=== PATIENT | female | born 1985 | race Caucasian/White ===

== ENCOUNTER 2019-02-28 06:08 | Inpatient (IN) ==
[~2019-02-28 06:08] MED LIST: CEFAZOLIN 2000MG 2,000 MG/15 ML SYR IV SCH
[2019-02-28] MEDS ORDERED: LACTATED RINGER'S 1,000 ML IV PRN (06:20)
[2019-02-28] MEDS ORDERED: miSOPROStoL 200 MCG TAB PR ONE ×2 (06:24→08:31)
[2019-02-28] MEDS ORDERED: TRANEXAMIC ACID / 0.7% NACL 1,000 MG/100 ML BAG IV STA (06:24)
[2019-02-28] MEDS ORDERED: SODIUM CHLORIDE 0.9% 250 ML IV PRN ×3 (06:24→19:27)
[2019-02-28] MEDS ORDERED: TRANEXAMIC ACID / 0.7% NACL 1000MG/100ML BAG IV ONE (06:27)
[2019-02-28] MEDS: OXYTOCIN 30 UNITS/500 ML BAG IV PRN ×3 (06:32→08:54)
[2019-02-28 06:41] LABS: Hematocrit (blood only) 28.5 % (37-47); Hemoglobin 9.8 g/dL (12.0-16.0); Mean Corpuscular Hemoglobin 31.9 pg (25-34); Mean Corpuscular Volume 92.8 fL (80-100); Mean Platelet Volume 9.5 fL (7.4-10.4); Platelet Count 211 K/uL (130-400); RDW Coefficient of Variation 13.9 % (11.5-14.5); RDW Standard Deviation 47.5 fL (36.4-46.3); Red Blood Count 3.07 M/uL (4.2-5.4); White Blood Count 13.15 K/uL (4.8-10.8)
[2019-02-28] MEDS ORDERED: SUCCINYLCHOLINE CHLORIDE 20 MG/ML 10 ML VIAL ONE (06:41)
[2019-02-28] MEDS ORDERED: fentaNYL citrate 100 MCG/2 ML VIAL ONE (06:41)
[2019-02-28] MEDS ORDERED: PROPOFOL IV EMULSION 10 MG/ML 20 ML VIAL IV ONE (06:41)
[2019-02-28 06:44] LABS: Mean Corpuscular Hgb Conc 34.4 g/dL (32-36)
[2019-02-28] MEDS ORDERED: SODIUM CHLORIDE 0.9% IV ONE (06:45)
[2019-02-28] MEDS ORDERED: CALCIUM GLUCONATE IV ONE (06:45)
[2019-02-28 06:51] LABS: Partial Thromboplastin Ratio 0.9; Partial Thromboplastin Time 25.6 Seconds (21.0-31.0)
[2019-02-28] MEDS ORDERED: IBUPROFEN 600 MG TAB PO PRN (07:44)
[2019-02-28] MEDS ORDERED: ACETAMINOPHEN 325 MG TAB PO PRN (07:44)
[2019-02-28] MEDS ORDERED: HYDROCORTISONE ACETATE 25 MG SUPP PR PRN (07:44)
[2019-02-28] MEDS ORDERED: SUPERCREAM 0.870% 15 GM JAR EXT PRN (07:44)
[2019-02-28] MEDS ORDERED: OXYTOCIN 30 UNITS/500 ML BAG IV PRN (07:44)
[2019-02-28] MEDS ORDERED: BENZOCAINE 20% AER SPR 82.5 GM CAN EXT PRN (07:44)
[2019-02-28] MEDS ORDERED: OXYTOCIN 10 UNITS/ML VIAL ONE (08:04)
--- NOTE | 2019-02-28 08:12 | Post Operative Brief Note ---
PG Immediate Post Op with CF Date of Surgery February 28, 2019 Pre & Post Diagnosis Operation Date: 02/28/19 06:00 Pre-Op Diagnosis: 1. Post Hemorrhage 2. Retained placenta Post-Op Diagnosis: Same as preop I identified the patient and participated in the time-out.: Yes Procedure Operation Date: 02/28/19 06:00 1) Manual removal of placenta 2) Curettage of the uterus 3) Bakri balloon placement Surgeon Charles Boyle Jr, MD, FACOG Roller Man Breanna Gotti Estimated Blood Loss 750 Findings See Below (Manual removal of placenta, curretage of endometrium with placement of Bakri balloon) Specimens Specimen Description: 1. Placenta - Exam Drains Leroy Catheter (Inserted in OR by Angela Mathews RN)
--- NOTE | 2019-02-28 08:14 | History and Physical Report ---
DATE OF ADMISSION: 02/28/2019 HISTORY: The patient is a 33-year-old 5, para 4 status post precipitous delivery at home who was brought by ambulance to labor and delivery for hemorrhage and retained placenta. The patient had a precipitous delivery at home. She was attended at some point by a tile layer supervisor who could not deliver the placenta and the patient started to hemorrhage. Ambulance was notified and the patient was brought to the hospital for evaluation. The patient's states that the patient had 2 previous bleeds with retained products of conception. With one of these, she was admitted to [facility] and had a Bakri balloon placed. The patient's states that she has no other significant past medical history. PHYSICAL EXAMINATION: GENERAL: Shows a pale Ezio woman, conversing, in no acute distress. ABDOMEN: Shows a fundus firm at umbilicus. PELVIC: Shows umbilical cord prolapsing through vagina. Attempted delivery of the placenta unsuccessful. Bimanual examination shows the placenta adhered to the uterine wall and will not release. EXTREMITIES: Shows bilateral varicosities with no deep calf tenderness. IMPRESSION: A 33-year-old 5, para 4 status post acute delivery with hemorrhage and retained placenta. PLAN: Verbal consent is obtained from the patient for Emergency manual extraction under general anesthesia. Anesthesia and the massive transfusion protocol have been activated. Discussing with anesthesia, it is not felt prudent to take the patient back to the operating room until blood products are available. Because of the estimated blood loss of at least 3000 mL at this point, O negative uncrossed matched blood will be transfused. Once the blood arrives, the patient will be taken to the operating room for removal of the placenta manually and further manipulation as needed. Verbal consent for this procedure was obtained from the patient. The patient was unable to sign because of the urgent status and multiple personnel attending to the patient.
--- NOTE | 2019-02-28 08:22 | Operative Report ---
DATE OF OPERATION: 02/28/2019 PREOPERATIVE DIAGNOSES: 1. hemorrhage. 2. Retained placenta. POSTOPERATIVE DIAGNOSES: 1. hemorrhage. 2. Retained placenta. PROCEDURE PERFORMED: 1. Manual removal of the placenta. 2. Curettage of endometrial lining. 3. Placement of Bakri balloon. SURGEON: Charles Boyle MD SPINNER OPERATOR: Breanna Gotti MD ANESTHESIA: General. FINDINGS: Exam under anesthesia revealed a placenta adhered to the uterine wall with the cervix grossly dilated, manual removal with most of the placenta removed. Curettage then performed of the endometrial lining with placement of the Bakri balloon with 180 mL of saline. PROCEDURE IN DETAIL: The patient was taken to the operating room in a stat fashion for a hemorrhage with estimated blood loss 5000 mL. After general anesthesia, the patient was placed in a dorsal lithotomy position. Leroy catheter was inserted into the bladder. Surgical stockings were placed on her legs. Weighted speculum was placed in the vagina. Ring forceps was used to grasp the anterior lip of the cervix. Inserting the surgeon's hand into the uterus, a plane was developed between the placenta and the uterine wall, removing 95% of the placenta. A large banjo curette was then used to curettage all 4 quadrants of the uterus and with vigorous massage, the uterus began to contract. A Bakri balloon was then inserted into the uterine cavity and insufflated with 180 mL of normal saline. The Bakri balloon was then attached to a Leroy catheter. Hemostasis was achieved with the Bakri balloon. The patient then received Cytotec 800 mcg rectally. The patient was taken out of dorsal lithotomy position and stabilized by anesthesia. Following stabilization of anesthesia, she was taken out of the operating room and to the intensive care unit in stable condition. I attest to the content of the Intraoperative Record and any orders documented therein. Any exception s are noted below.
--- NOTE | 2019-02-28 08:48 | Critical Care Consultation ---
Date of Consultation February 28, 2019 Assessment & Plan (1) Admitted to intensive care unit: Reason Critically Ill: 33-year-old female here for hemorrhage. Past medical history significant for no significant medical history Neuro: -CAM ICU: NEGATIVE -No acute concerns at present Cardiac: Hypovolemia secondary to hemorrhage -See hemorrhage Respiratory: -No concerns at present GI: -Regular OB diet diet RENAL/LYTES: -No significant electrolyte derangement. -Replace lytes as needed. : hemorrhage -Barry balloon in place ENDO: -No history of diabetes or thyroid disorder HEME: hemorrhage Patient presented to the ICU after sustaining a hemorrhage in the field and status post manual evacuation of the placenta with placement of a Barry balloon. Prior to presentation in the ICU the patient received 2 units packed red blood cells, 800 mg WI Cytotec 1 unit of cryo 1 unit of FFP 1 g of TXA and Pitocin was running. Patient does have a history of prior bleeds x2 one required admission to the hospital with placement of a Barry balloon. -Transfuse 1 additional unit of blood -Pitocin 20 units in LR running 125 mL/h -Trend H&H, ionized calcium, LDH, PTT, PT, every 6 hours -Monitor for signs and symptoms of anemia -LR at 125 mL an hour ID: - No concerns for infection at this point. -Monitor fever curve. INTEGUMENTARY: -No concerns at present LINES/IV ACCESS: -PIVs intact. DVT PROPHYLAXIS: -Contraindicated in the setting of hemorrhage Dispo: ICU Thank you for allowing us to be part of this patient's care. Please refer to Dr. Crews's documentation for any further recommendations. (2) hemorrhage: Supervising Physician Co-Signing Physician Notes Dr. Meredith was resident physician during care of patient. I separately evaluated patient for werner portions of the history and the exam. I was present during the critical portion of medical decision making, and I discussed the case with the resident. I generally agree with the findings and plan. Patient was given 1 unit of packed red blood cells for hemoglobin of 6, she has not had a large amount of output from the back re-balloon. I believe we can continue conservative management at this time. Her fundus does feel firm. She is tolerating taking food, I have added a multivitamin, twice daily iron, twice daily vitamin C to increase absorption as well as 1 mg folic acid. Patient critically ill due to hemorrhage. I have personally spent 35 minutes of critical care time in the direct management of this patient. This is a life/limb threatening event. This includes time spent evaluating patient, direct bedside care, chart review, placing orders, interpretation of diagnostic studies, discussion with consultants, patient, and/or family members regarding treatment decisions, as well as other required patient management activities. This time is exclusive of all separately billable procedures, and teaching time and separate from and in addition to any other critical care service time. History of Present Illness Attending Physician: Charles Boyle Jr, MD, FACOG History of Present Illness 33-year-old G5, P4 with no significant past medical history [facility] post home delivery for hemorrhage and retained placenta. Per report EMS was initially called out of concerns at the patient's was unresponsive. However in the interim the infant became responsive and the patient was hemorrhaging and her placenta was not delivered. There was a aluminum siding mechanic present who is familiar with necessary procedures and sent the patient to the hospital with the blood drenched clothing. This was weighed upon arrival and it was estimated that she lost approximately 5 L of blood. Per conversation with the patient's he stated the patient had 2 previous bleeds with retained products of conception. 1 of these required admission to [facility] in [place] balloon was placed. Upon arrival the patient received 2 units packed red blood cells, 1 unit FFP, 1 unit cryo and the patient was consented for emergency manual extraction under general anesthesia. Anesthesia massive transfusion protocol were activated. The patient was subsequently anesthetized, manual removal of the placenta was performed, curettage of the endometrial lining was performed, and then back re-balloon was placed with 100 mL of saline. Patient tolerated the procedure well and was subsequently transferred to the ICU for further evaluation and management. Upon arrival to the ICU the patient was responsive, mentating well, able to engage in conversation, reporting that she was very cold. Acute concerns at present related to blood loss, all questions answered. Patient History Medical History No significant past medical history Social History Communication Ability: Effective Beliefs That Will Affect Care: Cultural Current Living Situation: Spouse Feels Safe at Home: Yes Safety Concerns: Feels Safe At This Time Smoking Status: Never smoker Do You Dip or Chew Tobacco: No ; Hx Alcohol Use: No Hx Substance Use: No Physical Exam Physical Exam: General: Pale appearing female draped in blankets in no acute distress HEENT: Normocephalic atraumatic Neck: Normal to visual inspection, trachea midline, did not appreciate JVD Cardiac: Regular rate and rhythm, I did not appreciate significant murmurs rubs or gallops, normal S1, normal S2. Respiratory: Clear to auscultation bilaterally without significant wheezes, rales, rhonchi GI: Recently gravid belly, uterus firm and palpable 2 fingers below the umbilicus MSK: Moves all extremities Skin: No acute concerns Neuro: Alert oriented x4 Psych: Calm, cooperative Results & Data Laboratory Results 02/28/19 02/28/19 02/28/19 Range/Units 07:25 06:32 06:32 WBC (4.8-10.8) K/uL RBC (4.2-5.4) M/uL Hgb (12.0-16.0) g/dL Hct (37-47) % MCV (80-100) fL MCH (25-34) pg MCHC (32-36) g/dL RDW Std Deviation (36.4-46.3) fL RDW Coeff of [place] (11.5-14.5) % Plt Count (130-400) K/uL MPV (7.4-10.4) fL PT (9.0-12.0) Seconds INR (0.9-1.1) APTT (21.0-31.0) Seconds PTT Ratio RPR Pending Hep Bs Antigen Hepatitis C Antibody HIV 1&2 Ab/P24 Ag 4thGn Pending Rubella IgG Antibody Blood Type Blood Type Recheck A Positive Antibody Screen Crossmatch 02/28/19 02/28/19 02/28/19 Range/Units 06:32 06:30 06:30 WBC (4.8-10.8) K/uL RBC (4.2-5.4) M/uL Hgb (12.0-16.0) g/dL Hct (37-47) % MCV (80-100) fL MCH (25-34) pg MCHC (32-36) g/dL RDW Std Deviation (36.4-46.3) fL RDW Coeff of [place] (11.5-14.5) % Plt Count (130-400) K/uL MPV (7.4-10.4) fL PT 10.0 (9.0-12.0) Seconds INR 1.0 (0.9-1.1) APTT 25.6 (21.0-31.0) Seconds PTT Ratio 0.9 RPR Hep Bs Antigen Pending Hepatitis C Antibody Pending HIV 1&2 Ab/P24 Ag 4thGn Rubella IgG Antibody Pending Blood Type A Positive Blood Type Recheck Antibody Screen NEGATIVE Crossmatch See Detail 02/28/19 Range/Units 06:30 WBC 13.15 H (4.8-10.8) K/uL RBC 3.07 L (4.2-5.4) M/uL Hgb 9.8 L (12.0-16.0) g/dL Hct 28.5 L (37-47) % MCV 92.8 (80-100) fL MCH 31.9 (25-34) pg MCHC 34.4 (32-36) g/dL RDW Std Deviation 47.5 H (36.4-46.3) fL RDW Coeff of [place] 13.9 (11.5-14.5) % Plt Count 211 (130-400) K/uL MPV 9.5 (7.4-10.4) fL PT (9.0-12.0) Seconds INR (0.9-1.1) APTT (21.0-31.0) Seconds PTT Ratio RPR Hep Bs Antigen Hepatitis C Antibody HIV 1&2 Ab/P24 Ag 4thGn Rubella IgG Antibody Blood Type Blood Type Recheck Antibody Screen Crossmatch Medications Administered Current Inpatient Medications Acetaminophen (Tylenol) 650 mg PO Q6H PRN PRN Reason: Pain/SKINNER/Fever Stop: 03/30/19 07:43 Benzocaine (Dermoplast Pain Relieving Sand Pillow) 1 appln EXT PRN PRN PRN Reason: Perineal Discomfort Stop: 03/30/19 07:43 Bisacodyl (Dulcolax) 5 mg PO 2000 ADEN Stop: 03/01/19 20:01 Cocaine HCl (Supercream 0.870%) 1 gm EXT BID PRN PRN Reason: Hemorrhoidal Inflammation Stop: 03/14/19 07:43 Docusate Sodium (Colace) 100 mg PO DAILY@08,21 ADEN Stop: 03/30/19 07:59 Hydrocortisone (Anusol Hc) 25 mg WI BID PRN PRN Reason: Hemorrhoidal Inflammation Stop: 03/30/19 07:43 Lactated Ringer's (Lr) 1,000 mls @ 125 mls/hr IV .Q8H PRN; Protocol PRN Reason: L&D Protocol Stop: 03/02/19 06:19 Oxytocin (Pitocin) 30 units in 500 mls @ 333.333 mls/hr IV .Q1H30M PRN; Protocol PRN Reason: Bleeding Control Stop: 03/30/19 06:19 Last Admin: 02/28/19 06:33 Dose: 59.94 units/hr, 999 mls/hr Documented by: Sodium Chloride (Nss) 250 mls @ 15 mls/hr IV .[id number] PRN PRN Reason: For Transfusion Stop: 02/28/19 16:25 Albumin Human (Albumin 5%) 250 mls @ 250 mls/hr IV 0700,0800 ADEN Stop: 02/28/19 08:59 Cefazolin Sodium (Ancef 2000mg) 2,000 mg in 15 mls @ 3.75 mls/min IV PREOP ADEN Stop: 03/01/19 05:59 Oxytocin (Pitocin) 30 units in 500 mls @ 333.333 mls/hr IV .Q1H30M PRN; Protocol PRN Reason: Bleeding Control Stop: 03/30/19 07:43 Ibuprofen (Motrin) 600 mg PO Q4H PRN PRN Reason: Pain/SKINNER/Cramping/Fever Stop: 03/30/19 07:43 Prenat Multivit/Artillery Or [employer] Gunfire Observer/Iron/Folic Ac ( Vitamin) 1 tab PO DAILY@08 ADEN Stop: 03/30/19 07:59 Resident Activity Tracking Resident Involvement: Resident Care Provided Care Provided: Adult Hospital Medicine (ICU)
[2019-02-28 09:12] LABS: Rubella IgG Antibody Non Immune (Immune)
[2019-02-28] MEDS: ALBUMIN 5% 250 ML IV SCH ×2 (09:12→09:13)
--- NOTE | 2019-02-28 09:12 | Anesthesiology Consultation ---
Date of Service February 28, 2019 Assessment & Plan (1) No significant past medical history: (2) Encounter for pre-operative examination: Chart Review Chart Review: Acceptable Risk for Surgery and Patient NOT seen in Pre Admission Testing Consults Requested none ASA [id number] Proposed Anesthesia Anesthesia Type: General Risk / Benefits Reviewed With: PT / POA / Parent / Guardian, Accepts Plan and Informed Consent Obtained Additional Notes Preoperative evaluation performed prior to going to OR - documentation completed after the case done due to the case being emergent and the patient at risk of hemodynamic collapse if we did not proceed immediately. History Surgery Operation Date: 02/28/19 06:00 Proposed Procedures p Labor Delivery Dilation and Curettage - Charles Boyle Jr, MD, FACOG Medications Active Medications Generic Name Dose Route Start Last Admin Trade Name Freq PRN Reason Stop Dose Admin Oxytocin 30 units in 500 mls @ 333.333 mls/hr 02/28/19 06:20 02/28/19 08:54 Pitocin IV 03/30/19 06:19 125 units/hr .Q1H30M PRN 2,083.3 mls/hr Bleeding Control Administration Protocol 20 UNITS/HR Cefazolin Sodium 2,000 mg in 15 mls @ 3.75 mls/min 02/28/19 06:00 02/28/19 08:53 Ancef 2000mg IV 03/01/19 05:59 Not Given PREOP ADEN Oxytocin 30 units in 500 mls @ 333.333 mls/hr 02/28/19 07:44 02/28/19 06:33 Pitocin IV 03/30/19 07:43 Infused .Q1H30M PRN Titration Bleeding Control Protocol 20 UNITS/HR NPO Date Last Intake of Fluids: 02/28/19 Time Last Intake of Fluids: 06:30 Date Last Intake of Solids: 02/27/19 Time Last Intake of Solids: 11:59 Past Medical History Medical History (Updated 02/28/19 @ 09:10 by Richa Kan MD) No significant past medical history Exercise / Class Metabolic Activity II 4-5 Yardwork/Stairs/Walk up hill Past Family History Family history not collected - medical emergency Past Surgical History Hx of prior surgery - type of surgery not collected due to emergency Past Anesthesia History No Hx of Anesthesia Complications History of PONV No Hx of PONV Social History Smoking Status: Never smoker Do You Dip or Chew Tobacco: No Hx Alcohol Use: No Review of Systems Post hemorrhage after home Physical Exam Vital Signs Last Vital Signs Temp 37.5 C 02/28/19 08:59 Pulse 102 H 02/28/19 08:59 Resp 30 H 02/28/19 08:59 BP 101/64 02/28/19 08:59 Pulse Ox 100 02/28/19 08:59 Constitutional not obese ENMT Mouth: no TMJ abnormality and oral opening not small Thyromental Distance: > or= 3.5 Finger Breadths Mallampati Class: III Neck normal visual inspection; neck extension not limited Respiratory normal respiratory effort Auscultation: lungs clear to auscultation bilaterally Cardiovascular Rate/Rhythm: regular rate and regular rhythm Heart Sounds: no murmur Neurologic moves all extremities Psychiatric Orientation: alert and oriented x 3 Testing Laboratory Results 02/28/19 06:30 PT 10.0 Seconds (9.0-12.0) 02/28/19 06:30 INR 1.0 (0.9-1.1) 02/28/19 06:30 APTT 25.6 Seconds (21.0-31.0) 02/28/19 06:30 Blood Type A Positive 02/28/19 06:30 Antibody Screen NEGATIVE 02/28/19 06:30
[2019-02-28 09:13] LABS: Hepatitis B Surface Antigen Neg (Neg)
--- NOTE | 2019-02-28 09:17 | Anesthesiology Progress Note ---
Date of Service February 28, 2019 Anesthesia Post Procedure Vital Signs Vital Signs: Temp Pulse Pulse Resp BP BP Pulse Ox 02/28/19 09:00 37.5 C 108 H 20 100 02/28/19 08:59 37.5 C 102 H 30 H 101/64 100 02/28/19 08:55 37.5 C 103 H 20 112 H 02/28/19 08:50 37.5 C 110 H 18 125/58 L 100 02/28/19 08:45 37.5 C 100 H 20 127/62 100 02/28/19 08:40 37.5 C 112 H 19 128/58 L 100 02/28/19 08:35 37.5 C 105 H 18 132/59 L 100 02/28/19 08:30 115 H 20 100 02/28/19 06:05 116 H 22 125/69 Pain Intensity Pelvic: Pain Intensity: 3 Transfer of Care Handoff Completed per policy Notes Mental Status: alert / awake / arousable and participated in evaluation Patient Amnestic to Procedure: Yes Nausea / Vomiting: adequately controlled Pain: adequately controlled Airway Patency, RR, SpO2: stable & adequate BP & HR: stable & adequate Hydration State: stable & adequate Anesthetic Complications: no major complications apparent and see Notes below Notes: Patient direct to the ICU at the end of the case. Awake, alert, responding appropriately and moving all extremities. Hemodynamically stable. Report given.
[2019-02-28] MEDS: DOCUSATE SODIUM 100 MG CAP PO SCH ×2 (09:32→19:55)
[2019-02-28] MEDS: PRENATAL VITAMIN 1 TAB PO SCH (09:32)
[2019-02-28] MEDS: OXYTOCIN 20 UNITS in LACTATED RINGER'S 1,000 ML IV SCH ×2 (09:35→17:03)
[2019-02-28 09:41] LABS: Hematocrit (blood only) 17.2 % (37-47)
[2019-02-28 09:41] LABS: Hepatitis C IgG 13Yrs+Old_Rflx Neg (Neg)
[2019-02-28 09:45] LABS: INR 1.2 (0.9-1.1); Partial Thromboplastin Ratio 1.1; Partial Thromboplastin Time 29.1 Seconds (21.0-31.0); Prothrombin Time 11.7 Seconds (9.0-12.0)
[2019-02-28 09:50] LABS: Albumin Level 2.2 gm/dl (3.4-5.0); Calcium 7.3 mg/dl (8.5-10.1); Creatinine Clr Calc Pharmacy 158.8 ml/min; Est GFR (Non-African American) 124.2; Potassium 3.5 mmol/L (3.5-5.1)
[2019-02-28 09:53] LABS: Bilirubin,Total 0.5 mg/dl (0.2-1); Globulin 2.3 gm/dl (2.5-4.0); Total Protein 4.5 gm/dl (6.4-8.2)
[2019-02-28] MEDS ORDERED: ACETAMINOPHEN 1,000 MG/100 ML VIAL IV PRN (12:23)
[2019-02-28 15:42] LABS: INR 1.1 (0.9-1.1); Partial Thromboplastin Ratio 1.1; Partial Thromboplastin Time 29.9 Seconds (21.0-31.0); Prothrombin Time 11.2 Seconds (9.0-12.0)
[2019-02-28 16:08] LABS: Hematocrit (blood only) 19.1 % (37-47); Hemoglobin 6.8 g/dL (12.0-16.0)
--- NOTE | 2019-02-28 17:33 | Billing Data ---
Date of Service February 28, 2019 Coding Level of Care Code Critical Care 1st - mins
[2019-02-28] MEDS: FOLIC ACID 1 MG TAB PO SCH (19:53)
[2019-02-28] MEDS: MULTIVITAMIN TAB PO SCH (19:54)
[2019-02-28] MEDS: ASCORBIC ACID 500 MG TAB PO SCH (19:54)
[2019-03-01] MEDS: OXYTOCIN 20 UNITS in LACTATED RINGER'S 1,000 ML IV SCH ×3 (01:13→17:58)
[2019-03-01 02:28] LABS: Basophils # (auto) 0.01 K/uL (0-0.2); Basophils % (auto) 0.1 %; Eosinophils # (auto) 0.01 K/uL (0-0.5); Eosinophils % (auto) 0.1 %; Hematocrit (blood only) 21.9 % (37-47); Hemoglobin 7.9 g/dL (12.0-16.0); Immature Granulocytes # (auto) 0.02 K/uL (0.00-0.02); Immature Granulocytes % (auto) 0.2 %; Lymphocytes # (auto) 1.65 K/uL (1.2-3.4); Lymphocytes % (auto) 15.3 %; Mean Corpuscular Hemoglobin 31.3 pg (25-34); Mean Corpuscular Hgb Conc 36.1 g/dL (32-36); Mean Corpuscular Volume 86.9 fL (80-100); Monocytes # (auto) 0.72 K/uL (0.11-0.59); Monocytes % (auto) 6.7 %; Neutrophils # (auto) 8.34 K/uL (1.4-6.5); Neutrophils % (auto) 77.6 %; Platelet Count 109 K/uL (130-400); RDW Coefficient of Variation 14.4 % (11.5-14.5); RDW Standard Deviation 45.1 fL (36.4-46.3); Red Blood Count 2.52 M/uL (4.2-5.4); White Blood Count 10.75 K/uL (4.8-10.8)
[2019-03-01 02:43] LABS: Partial Thromboplastin Time 27.5 Seconds (21.0-31.0); Prothrombin Time 10.4 Seconds (9.0-12.0)
[2019-03-01 02:48] LABS: Alanine Aminotransferase 14 U/L (12-78); Aspartate Aminotransferase 35 U/L (15-37); BUN Creatinine Ratio 12.4 (10-20); Bilirubin,Total 0.5 mg/dl (0.2-1); Blood Urea Nitrogen 5 mg/dl (7-18); Calcium 7.5 mg/dl (8.5-10.1); Carbon Dioxide 26 mmol/L (21-32); Chloride 107 mmol/L (98-107); Creatinine Clr Calc Pharmacy 222.3 ml/min; Est GFR (African American) > 150.0; Est GFR (Non-African American) 138.8; Glucose 86 mg/dl (70-99); Magnesium 1.4 mg/dl (1.8-2.4); Potassium 3.5 mmol/L (3.5-5.1); Sodium 136 mmol/L (136-145); Total Protein 4.6 gm/dl (6.4-8.2)
[2019-03-01 02:51] LABS: Alkaline Phosphatase 86 U/L (45-117); Bilirubin Direct 0.1 mg/dl (0-0.2); Phosphorus 3.5 mg/dl (2.5-4.9)
[2019-03-01 03:10] LABS: RBC Morphology Unremarkable
--- NOTE | 2019-03-01 08:13 | Obstetrical Progress Note ---
Date of Service March 01, 2019 Assessment & Plan (1) hemorrhage: Massive hemorrhage controlled with Bakri balloon. The balloon has now been in for 24 hours will begin to withdraw the fluid in the Bakri in increments Remove jenkins when Bakri has been removed. H&H from this am still pending. Subjective Voiding: jenkins catheter in place Passing Gas:: Yes Diet Tolerance:: regular diet Lochia:: Small Feeding Type:: breast feeding She ahs not been out of bed yet, drainage from Bakri is no more 20-30 ccs with each 2hr check. She feels much better today- sitting up without being lightheaded or dizzy.She received 2 more units of PRBC's last night because Hemoglobin was still 6.8. Physical Exam Constitutional WD/WN, vitals as above Psychiatric A+Ox3, euthymic affect Genitourinary OB Exam Abdomen: + fundal height Fundus: + firm and + relation to umbilicus (2 below U); not tender Results & Data Vital Signs (Past 12 Hours) Vital Signs Temp Pulse Resp BP Pulse Ox 03/01/19 06:00 88 15 93 03/01/19 05:45 96 H 9 L 97 03/01/19 05:30 80 3 L 94 03/01/19 05:15 82 4 L 95 03/01/19 05:00 74 5 L 95 03/01/19 04:45 85 1 L 94 03/01/19 04:30 79 0 L 95 03/01/19 04:15 91 H 6 L 95 03/01/19 04:00 84 0 L 95 03/01/19 03:45 92 H 15 95 03/01/19 03:30 84 0 L 95 03/01/19 03:15 89 1 L 96 03/01/19 03:00 87 6 L 96 03/01/19 02:45 101 H 22 97 03/01/19 02:30 86 17 95 03/01/19 02:15 79 7 L 96 03/01/19 02:00 92 H 3 L 95 03/01/19 01:45 91 H 5 L 95 03/01/19 01:30 93 H 1 L 96 03/01/19 01:15 88 6 L 97 03/01/19 01:00 87 0 L 97 03/01/19 00:45 95 H 0 L 96 03/01/19 00:30 86 0 L 96 03/01/19 00:15 85 0 L 98 03/01/19 00:00 87 0 L 96 02/28/19 23:45 86 0 L 95 02/28/19 23:30 88 0 L 95 02/28/19 23:15 90 0 L 97 02/28/19 23:00 88 0 L 95 02/28/19 22:50 99.7 F H 82 18 103/53 L 98 02/28/19 22:45 78 0 L 97 02/28/19 22:30 78 4 L 96 02/28/19 22:22 99.5 F 74 16 111/57 L 97 02/28/19 22:15 81 0 L 96 02/28/19 22:00 91 H 10 L 97 02/28/19 21:50 78 4 L 97 02/28/19 21:45 85 4 L 96 02/28/19 21:40 85 5 L 96 02/28/19 21:35 82 0 L 97 02/28/19 21:30 85 4 L 97 02/28/19 21:25 83 0 L 96 02/28/19 21:20 81 3 L 97 02/28/19 21:15 89 3 L 98 02/28/19 21:10 88 6 L 97 02/28/19 21:05 86 11 L 97 02/28/19 21:00 89 29 H 97 02/28/19 20:55 93 H 23 97 02/28/19 20:50 100 H 27 H 96 02/28/19 20:45 107 H 19 94 02/28/19 20:40 106 H 21 96 02/28/19 20:35 87 7 L 95 02/28/19 20:30 88 20 96 18 20:25 100 H 18 97 18 20:23 99.7 F H 102 H 20 117/63 97 18 20:15 92 H 20 97
[2019-03-01 08:26] LABS: Hemoglobin 8.3 g/dL (12.0-16.0)
[2019-03-01] MEDS: MULTIVITAMIN TAB PO SCH (09:26)
[2019-03-01] MEDS: PRENATAL VITAMIN 1 TAB PO SCH (09:26)
[2019-03-01] MEDS: ASCORBIC ACID 500 MG TAB PO SCH ×2 (09:26→21:04)
[2019-03-01] MEDS: FERROUS SULFATE 325 MG TAB PO SCH ×2 (09:26→17:14)
[2019-03-01] MEDS: FOLIC ACID 1 MG TAB PO SCH (09:26)
[2019-03-01] MEDS: DOCUSATE SODIUM 100 MG CAP PO SCH ×2 (09:31→21:04)
--- NOTE | 2019-03-01 10:42 | Obstetrical Progress Note ---
Date of Service Sign over from Dr. Gotti. Patient currently not bleeding much, some lower abdomen discomfort March 01, 2019 Assessment & Plan (1) hemorrhage: Plan from Dr. Gotti was to remove the Barry today. I did this with 45cc removed every 30 minutes. When fully deflated the Barry was removed. Minimal blood, mainly dark. A+P: Will have her sit up in the next 2 hours. If stable and no further bleeding then hopefully to the floor later today. Results & Data Vital Signs (Past 12 Hours) Vital Signs Temp Pulse Resp BP Pulse Ox 03/01/19 10:00 91 H 20 102/56 L 97 03/01/19 09:00 79 18 110/67 96 03/01/19 08:00 95 H 16 96 03/01/19 07:44 82 16 106/52 L 96 03/01/19 07:00 77 16 94 03/01/19 06:00 88 15 93 03/01/19 05:45 96 H 9 L 97 03/01/19 05:30 80 3 L 94 03/01/19 05:15 82 4 L 95 03/01/19 05:00 74 5 L 95 03/01/19 04:45 85 1 L 94 03/01/19 04:30 79 0 L 95 03/01/19 04:15 91 H 6 L 95 03/01/19 04:00 84 0 L 95 03/01/19 03:45 92 H 15 95 03/01/19 03:30 84 0 L 95 03/01/19 03:15 89 1 L 96 03/01/19 03:00 87 6 L 96 03/01/19 02:45 101 H 22 97 03/01/19 02:30 86 17 95 03/01/19 02:15 79 7 L 96 03/01/19 02:00 92 H 3 L 95 03/01/19 01:45 91 H 5 L 95 03/01/19 01:30 93 H 1 L 96 03/01/19 01:15 88 6 L 97 03/01/19 01:00 87 0 L 97 03/01/19 00:45 95 H 0 L 96 03/01/19 00:30 86 0 L 96 03/01/19 00:15 85 0 L 98 03/01/19 00:00 87 0 L 96 12/18/19 23:45 86 0 L 95 02/28/19 23:30 88 0 L 95 02/28/19 23:15 90 0 L 97 02/28/19 23:00 88 0 L 95 02/28/19 22:50 99.7 F H 82 18 103/53 L 98 02/28/19 22:45 78 0 L 97 PG Care Time/CCT Total # of Minutes Spent Total Time Spent with Patient: Total time spent is greater than 50% in coordination of care (as documented) at patient's floor/unit and/or counseling patient:
--- NOTE | 2019-03-01 10:45 | Critical Care Progress Note ---
Date of Service March 01, 2019 Assessment & Plan (1) Admitted to intensive care unit: Reason Critically Ill: 33-year-old female here for hemorrhage. Past medical history significant for hemorrhage x2 1 requiring admission to the hospital with placement of a back rehabilitation and removal of retained products of conception. Neuro: -CAM ICU: NEGATIVE -No acute concerns at present Cardiac: Hypovolemia secondary to hemorrhage -See hemorrhage Respiratory: -No concerns at present GI: -Regular OB diet diet RENAL/LYTES: -No significant electrolyte derangement. -Replace lytes as needed. : hemorrhage Velma balloon in place -plan to remove today per ob at 45 cc increments ENDO: -No history of diabetes or thyroid disorder HEME: hemorrhage Patient presented to the ICU after sustaining a hemorrhage in the field and status post manual evacuation of the placenta with placement of a Velma balloon. Prior to presentation in the ICU the patient received 2 units packed red blood cells, 800 mg OR Cytotec 1 unit of cryo 1 unit of FFP 1 g of TXA and Pitocin was running. Patient does have a history of prior bleeds x2 one required admission to the hospital with placement of a Velma balloon. Received a total for 5 u of pRBC. -Monitor for signs and symptoms of anemia -h/h this am 8.3/23 -labs stable -Pit per OB -LR at 125 mL an hour -UOP 10L since yesterday ID: -No concerns for infection at this point. -Monitor fever curve. INTEGUMENTARY: -No concerns at present LINES/IV ACCESS: -PIVs intact. DVT PROPHYLAXIS: -Contraindicated in the setting of hemorrhage Dispo: Stabe for downgrade when velma baloon is deflated and no si/sx of hemorrhage Thank you for allowing us to be part of this patient's care. Please refer to Dr. Crews's documentation for any further recommendations. (2) hemorrhage: Supervising Physician Co-Signing Physician Notes Dr. Meredith was resident physician during care of patient. I separately evaluated patient for werner portions of the history and the exam. I was present during the critical portion of medical decision making, and I discussed the case with the resident. I generally agree with the findings and plan. Patient was discussed on multidisciplinary rounds, stable for downgrade out of ICU. Subjective Patient sitting upright in bed in no acute distress. Patient did well overnight with no acute events. Patient denying signs or symptoms of anemia. Leroy in place making good urine, no signs or symptoms of trali tolerating diet, no bowel movement yet, slept well overnight, uterus firm and below the umbilicus. All questions answered, acute concerns related to removing the velma rebleed Physical Exam Physical Exam: General: No acute distress HEENT: Normocephalic atraumatic Neck: No significant lymphadenopathy, trachea midline, normal to visual inspection Cardiac: Regular rate and rhythm, normal S1, normal S2, I did not appreciated any significant murmurs rubs or gallops, I did not appreciate any significant pedal edema, No calf tenderness, capillary refill is less than 3 seconds Respiratory: Clear to auscultation bilaterally with symmetrical chest rise, I did not appreciate any significant wheezes, rales, rhonchi, no increased work of breathing GI: Normal bowel sounds, soft, nontender in all 4 quadrants. Recently gravid belly, uterus firm and palpable 2 fingers below the umbilicus MSK: No sensory or motor changes, moves all extremities without issue, extremities are warm and well-perfused Skin: [place], clean, dry, intact. Neuro: Alert and oriented x4 Psych: Calm, cooperative, logical thought process Results & Data Vital Signs (Past 12 Hours) Vital Signs Temp Pulse Resp BP Pulse Ox 03/01/19 10:00 91 H 20 102/56 L 97 03/01/19 09:00 79 18 110/67 96 03/01/19 08:00 95 H 16 96 03/01/19 07:44 82 16 106/52 L 96 03/01/19 07:00 77 16 94 03/01/19 06:00 88 15 93 03/01/19 05:45 96 H 9 L 97 03/01/19 05:30 80 3 L 94 03/01/19 05:15 82 4 L 95 03/01/19 05:00 74 5 L 95 03/01/19 04:45 85 1 L 94 03/01/19 04:30 79 0 L 95 03/01/19 04:15 91 H 6 L 95 03/01/19 04:00 84 0 L 95 03/01/19 03:45 92 H 15 95 03/01/19 03:30 84 0 L 95 03/01/19 03:15 89 1 L 96 03/01/19 03:00 87 6 L 96 03/01/19 02:45 101 H 22 97 03/01/19 02:30 86 17 95 03/01/19 02:15 79 7 L 96 03/01/19 02:00 92 H 3 L 95 03/01/19 01:45 91 H 5 L 95 03/01/19 01:30 93 H 1 L 96 03/01/19 01:15 88 6 L 97 03/01/19 01:00 87 0 L 97 03/01/19 00:45 95 H 0 L 96 03/01/19 00:30 86 0 L 96 03/01/19 00:15 85 0 L 98 03/01/19 00:00 87 0 L 96 02/28/19 23:45 86 0 L 95 02/28/19 23:30 88 0 L 95 02/28/19 23:15 90 0 L 97 02/28/19 23:00 88 0 L 95 02/28/19 22:50 37.6 C H 82 18 103/53 L 98 02/28/19 22:45 78 0 L 97 Laboratory Results 03/01/19 03/01/19 03/01/19 Range/Units 08:09 02:17 02:17 WBC (4.8-10.8) K/uL RBC (4.2-5.4) M/uL Hgb 8.3 L (12.0-16.0) g/dL Hct 23.0 L (37-47) % MCV (80-100) fL MCH (25-34) pg MCHC (32-36) g/dL RDW Std Deviation (36.4-46.3) fL RDW Coeff of [place] (11.5-14.5) % Plt Count (130-400) K/uL MPV (7.4-10.4) fL Immature Gran % (Auto) % Neut % (Auto) % Lymph % (Auto) % [place] % (Auto) % Eos % (Auto) % Baso % (Auto) % Immature Gran # (Auto) (0.00-0.02) K/uL Neut # (Auto) (1.4-6.5) K/uL Lymph # (Auto) (1.2-3.4) K/uL [place] # (Auto) (0.11-0.59) K/uL Eos # (Auto) (0-0.5) K/uL Baso # (Auto) (0-0.2) K/uL RBC Morphology PT (9.0-12.0) Seconds INR (0.9-1.1) APTT (21.0-31.0) Seconds PTT Ratio Sodium (136-145) mmol/L Potassium (3.5-5.1) mmol/L Chloride (98-107) mmol/L Carbon Dioxide (21-32) mmol/L Anion Gap (3-11) BUN (7-18) mg/dl Creatinine (0.6-1.2) mg/dl Est Cr Clr Drug Dosing ml/min Est GFR ( Amer) Est GFR (Non-Af Amer) BUN/Creatinine Ratio (10-20) Glucose (70-99) mg/dl Calcium (8.5-10.1) mg/dl Ionized Calcium 1.08 L (1.12-1.32) mmol/L Phosphorus (2.5-4.9) mg/dl Magnesium (1.8-2.4) mg/dl Total Bilirubin (0.2-1) mg/dl Direct Bilirubin (0-0.2) mg/dl AST (15-37) U/L ALT (12-78) U/L Alkaline Phosphatase (45-117) U/L Lactate Dehydrogenase 417 H (84-246) U/L Total Protein (6.4-8.2) gm/dl Albumin (3.4-5.0) gm/dl Nasal Screen MRSA (PCR) (Negative) RPR (Nonreactive) Blood Type Antibody Screen Crossmatch 03/01/19 03/01/19 03/01/19 Range/Units 02:17 02:17 02:17 WBC 10.75 (4.8-10.8) K/uL RBC 2.52 L (4.2-5.4) M/uL Hgb 7.9 L (12.0-16.0) g/dL Hct 21.9 L (37-47) % MCV 86.9 D (80-100) fL MCH 31.3 (25-34) pg MCHC 36.1 H (32-36) g/dL RDW Std Deviation 45.1 (36.4-46.3) fL RDW Coeff of [place] 14.4 (11.5-14.5) % Plt Count 109 L (130-400) K/uL MPV 9.0 (7.4-10.4) fL Immature Gran % (Auto) 0.2 % Neut % (Auto) 77.6 % Lymph % (Auto) 15.3 % [place] % (Auto) 6.7 % Eos % (Auto) 0.1 % Baso % (Auto) 0.1 % Immature Gran # (Auto) 0.02 (0.00-0.02) K/uL Neut # (Auto) 8.34 H (1.4-6.5) K/uL Lymph # (Auto) 1.65 (1.2-3.4) K/uL [place] # (Auto) 0.72 H (0.11-0.59) K/uL Eos # (Auto) 0.01 (0-0.5) K/uL Baso # (Auto) 0.01 (0-0.2) K/uL RBC Morphology Unremarkable PT 10.4 (9.0-12.0) Seconds INR 1.0 (0.9-1.1) APTT 27.5 (21.0-31.0) Seconds PTT Ratio 1.0 Sodium 136 (136-145) mmol/L Potassium 3.5 (3.5-5.1) mmol/L Chloride 107 (98-107) mmol/L Carbon Dioxide 26 (21-32) mmol/L Anion Gap 3.0 (3-11) BUN 5 L (7-18) mg/dl Creatinine 0.40 L (0.6-1.2) mg/dl Est Cr Clr Drug Dosing 222.3 ml/min Est GFR ( Amer) > 150.0 Est GFR (Non-Af Amer) 138.8 BUN/Creatinine Ratio 12.4 (10-20) Glucose 86 (70-99) mg/dl Calcium 7.5 L (8.5-10.1) mg/dl Ionized Calcium (1.12-1.32) mmol/L Phosphorus 3.5 (2.5-4.9) mg/dl Magnesium 1.4 L (1.8-2.4) mg/dl Total Bilirubin 0.5 (0.2-1) mg/dl Direct Bilirubin 0.1 (0-0.2) mg/dl AST 35 (15-37) U/L ALT 14 (12-78) U/L Alkaline Phosphatase 86 (45-117) U/L Lactate Dehydrogenase (84-246) U/L Total Protein 4.6 L (6.4-8.2) gm/dl Albumin 2.0 L (3.4-5.0) gm/dl Nasal Screen MRSA (PCR) (Negative) RPR (Nonreactive) Blood Type Antibody Screen Crossmatch 02/28/19 02/28/19 02/28/19 Range/Units Unknown 15:08 15:08 WBC (4.8-10.8) K/uL RBC (4.2-5.4) M/uL Hgb (12.0-16.0) g/dL Hct (37-47) % MCV (80-100) fL MCH (25-34) pg MCHC (32-36) g/dL RDW Std Deviation (36.4-46.3) fL RDW Coeff of [place] (11.5-14.5) % Plt Count (130-400) K/uL MPV (7.4-10.4) fL Immature Gran % (Auto) % Neut % (Auto) % Lymph % (Auto) % [place] % (Auto) % Eos % (Auto) % Baso % (Auto) % Immature Gran # (Auto) (0.00-0.02) K/uL Neut # (Auto) (1.4-6.5) K/uL Lymph # (Auto) (1.2-3.4) K/uL [place] # (Auto) (0.11-0.59) K/uL Eos # (Auto) (0-0.5) K/uL Baso # (Auto) (0-0.2) K/uL RBC Morphology PT (9.0-12.0) Seconds INR (0.9-1.1) APTT (21.0-31.0) Seconds PTT Ratio Sodium (136-145) mmol/L Potassium (3.5-5.1) mmol/L Chloride (98-107) mmol/L Carbon Dioxide (21-32) mmol/L Anion Gap (3-11) BUN (7-18) mg/dl Creatinine (0.6-1.2) mg/dl Est Cr Clr Drug Dosing ml/min Est GFR ( Amer) Est GFR (Non-Af Amer) BUN/Creatinine Ratio (10-20) Glucose (70-99) mg/dl Calcium (8.5-10.1) mg/dl Ionized Calcium 1.03 L (1.12-1.32) mmol/L Phosphorus (2.5-4.9) mg/dl Magnesium (1.8-2.4) mg/dl Total Bilirubin (0.2-1) mg/dl Direct Bilirubin (0-0.2) mg/dl AST (15-37) U/L ALT (12-78) U/L Alkaline Phosphatase (45-117) U/L Lactate Dehydrogenase 486 H (84-246) U/L Total Protein (6.4-8.2) gm/dl Albumin (3.4-5.0) gm/dl Nasal Screen MRSA (PCR) Negative (Negative) RPR (Nonreactive) Blood Type Antibody Screen Crossmatch 02/28/19 02/28/19 02/28/19 Range/Units 15:08 15:08 06:32 WBC (4.8-10.8) K/uL RBC (4.2-5.4) M/uL Hgb 6.8 L* (12.0-16.0) g/dL Hct 19.1 L* (37-47) % MCV (80-100) fL MCH (25-34) pg MCHC (32-36) g/dL RDW Std Deviation (36.4-46.3) fL RDW Coeff of [place] (11.5-14.5) % Plt Count (130-400) K/uL MPV (7.4-10.4) fL Immature Gran % (Auto) % Neut % (Auto) % Lymph % (Auto) % [place] % (Auto) % Eos % (Auto) % Baso % (Auto) % Immature Gran # (Auto) (0.00-0.02) K/uL Neut # (Auto) (1.4-6.5) K/uL Lymph # (Auto) (1.2-3.4) K/uL [place] # (Auto) (0.11-0.59) K/uL Eos # (Auto) (0-0.5) K/uL Baso # (Auto) (0-0.2) K/uL RBC Morphology PT 11.2 (9.0-12.0) Seconds INR 1.1 (0.9-1.1) APTT 29.9 (21.0-31.0) Seconds PTT Ratio 1.1 Sodium (136-145) mmol/L Potassium (3.5-5.1) mmol/L Chloride (98-107) mmol/L Carbon Dioxide (21-32) mmol/L Anion Gap (3-11) BUN (7-18) mg/dl Creatinine (0.6-1.2) mg/dl Est Cr Clr Drug Dosing ml/min Est GFR ( Amer) Est GFR (Non-Af Amer) BUN/Creatinine Ratio (10-20) Glucose (70-99) mg/dl Calcium (8.5-10.1) mg/dl Ionized Calcium (1.12-1.32) mmol/L Phosphorus (2.5-4.9) mg/dl Magnesium (1.8-2.4) mg/dl Total Bilirubin (0.2-1) mg/dl Direct Bilirubin (0-0.2) mg/dl AST (15-37) U/L ALT (12-78) U/L Alkaline Phosphatase (45-117) U/L Lactate Dehydrogenase (84-246) U/L Total Protein (6.4-8.2) gm/dl Albumin (3.4-5.0) gm/dl Nasal Screen MRSA (PCR) (Negative) RPR Nonreactive (Nonreactive) Blood Type Antibody Screen Crossmatch 02/28/19 Range/Units 06:30 WBC (4.8-10.8) K/uL RBC (4.2-5.4) M/uL Hgb (12.0-16.0) g/dL Hct (37-47) % MCV (80-100) fL MCH (25-34) pg MCHC (32-36) g/dL RDW Std Deviation (36.4-46.3) fL RDW Coeff of [place] (11.5-14.5) % Plt Count (130-400) K/uL MPV (7.4-10.4) fL Immature Gran % (Auto) % Neut % (Auto) % Lymph % (Auto) % [place] % (Auto) % Eos % (Auto) % Baso % (Auto) % Immature Gran # (Auto) (0.00-0.02) K/uL Neut # (Auto) (1.4-6.5) K/uL Lymph # (Auto) (1.2-3.4) K/uL [place] # (Auto) (0.11-0.59) K/uL Eos # (Auto) (0-0.5) K/uL Baso # (Auto) (0-0.2) K/uL RBC Morphology PT (9.0-12.0) Seconds INR (0.9-1.1) APTT (21.0-31.0) Seconds PTT Ratio Sodium (136-145) mmol/L Potassium (3.5-5.1) mmol/L Chloride (98-107) mmol/L Carbon Dioxide (21-32) mmol/L Anion Gap (3-11) BUN (7-18) mg/dl Creatinine (0.6-1.2) mg/dl Est Cr Clr Drug Dosing ml/min Est GFR ( Amer) Est GFR (Non-Af Amer) BUN/Creatinine Ratio (10-20) Glucose (70-99) mg/dl Calcium (8.5-10.1) mg/dl Ionized Calcium (1.12-1.32) mmol/L Phosphorus (2.5-4.9) mg/dl Magnesium (1.8-2.4) mg/dl Total Bilirubin (0.2-1) mg/dl Direct Bilirubin (0-0.2) mg/dl AST (15-37) U/L ALT (12-78) U/L Alkaline Phosphatase (45-117) U/L Lactate Dehydrogenase (84-246) U/L Total Protein (6.4-8.2) gm/dl Albumin (3.4-5.0) gm/dl Nasal Screen MRSA (PCR) (Negative) RPR (Nonreactive) Blood Type A Positive Antibody Screen NEGATIVE Crossmatch See Detail Medications Administered Current Inpatient Medications Acetaminophen (Tylenol) 650 mg PO Q6H PRN PRN Reason: Pain/SKINNER/Fever Stop: 03/30/19 07:43 Last Admin: 02/28/19 19:55 Dose: 650 mg Documented by: Ascorbic Acid (Vitamin C) 500 mg PO BID ADEN Stop: 03/30/19 20:59 Last Admin: 03/01/19 09:26 Dose: 500 mg Documented by: Benzocaine (Dermoplast Pain Relieving [place]) 1 appln EXT PRN PRN PRN Reason: Perineal Discomfort Stop: 03/30/19 07:43 Bisacodyl (Dulcolax) 5 mg PO 1999 [facility] Stop: 03/01/19 20:01 Cocaine HCl (Supercream 0.870%) 1 gm EXT BID PRN PRN Reason: Hemorrhoidal Inflammation Stop: 03/14/19 07:43 Docusate Sodium (Colace) 100 mg PO DAILY@ [facility] Stop: 03/30/19 07:59 Last Admin: 03/01/19 09:31 Dose: 100 mg Documented by: Ferrous Sulfate (Feosol) 325 mg PO BIDM [facility] Stop: 03/31/19 07:59 Last Admin: 03/01/19 09:26 Dose: 325 mg Documented by: Folic Acid (Folvite) 1 mg PO QAM [facility] Stop: 03/30/19 17:29 Last Admin: 03/01/19 09:26 Dose: 1 mg Documented by: Hydrocortisone (Anusol Hc) 25 mg OR BID PRN PRN Reason: Hemorrhoidal Inflammation Stop: 03/30/19 07:43 Lactated Ringer's (Lr) 1,000 mls @ 125 mls/hr IV .Q8H PRN; Protocol PRN Reason: L&D Protocol Stop: 03/02/19 06:19 Oxytocin (Pitocin) 30 units in 500 mls @ 333.333 mls/hr IV .Q1H30M PRN; Protocol PRN Reason: Bleeding Control Stop: 03/30/19 06:19 Last Titration: 02/28/19 09:33 Dose: Infused Documented by: Oxytocin (Pitocin) 30 units in 500 mls @ 333.333 mls/hr IV .Q1H30M PRN; Protocol PRN Reason: Bleeding Control Stop: 03/30/19 07:43 Last Titration: 02/28/19 06:33 Dose: Infused Documented by: Acetaminophen (Ofirmev) 1,000 mg in 100 mls @ 400 mls/hr IV Q8H PRN PRN Reason: Moderate Pain Stop: 03/03/19 12:22 Last Infusion: 02/28/19 13:22 Dose: Infused Documented by: Oxytocin 20 units/ Lactated (Ringer's) 1,002 mls @ 125 mls/hr IV .Q8H1M [facility] Stop: 03/02/19 01:16 Last Admin: 03/01/19 09:26 Dose: 125 mls/hr Documented by: Ibuprofen (Motrin) 600 mg PO Q4H PRN PRN Reason: Pain/SKINNER/Cramping/Fever Stop: 03/30/19 07:43 Multivitamins (Multivitamin Tab) 1 tab PO QAM [facility] Stop: 03/30/19 17:29 Last Admin: 03/01/19 09:26 Dose: 1 tab Documented by: Ayde Multivit/[place]/Iron/Folic Ac ( Vitamin) 1 tab PO DAILY@08 [facility] Stop: 03/30/19 07:59 Last Admin: 03/01/19 09:26 Dose: 1 tab Documented by: Resident Activity Tracking Resident Involvement: Resident Care Provided Care Provided: Adult Hospital Medicine (ICU)
--- NOTE | 2019-03-01 13:15 | Billing Data ---
Date of Service March 01, 2019 Coding Level of Care Code 17205 Subseq Hosp Care Lvl 1
--- NOTE | 2019-03-01 13:42 | Obstetrical Progress Note ---
Date of Service March 01, 2019 Barry out, now minimal bleeding. To floor. Assessment & Plan Day #:: 2 Results & Data Vital Signs (Past 12 Hours) Vital Signs Pulse Resp BP Pulse Ox 03/01/19 11:00 87 16 93 03/01/19 10:00 91 H 20 102/56 L 97 03/01/19 09:00 79 18 110/67 96 03/01/19 08:00 95 H 16 96 03/01/19 07:44 82 16 106/52 L 96 03/01/19 07:00 77 16 94 03/01/19 06:00 88 15 93 03/01/19 05:45 96 H 9 L 97 03/01/19 05:30 80 3 L 94 03/01/19 05:15 82 4 L 95 03/01/19 05:00 74 5 L 95 03/01/19 04:45 85 1 L 94 03/01/19 04:30 79 0 L 95 03/01/19 04:15 91 H 6 L 95 03/01/19 04:00 84 0 L 95 03/01/19 03:45 92 H 15 95 03/01/19 03:30 84 0 L 95 03/01/19 03:15 89 1 L 96 03/01/19 03:00 87 6 L 96 03/01/19 02:45 101 H 22 97 03/01/19 02:30 86 17 95 03/01/19 02:15 79 7 L 96 03/01/19 02:00 92 H 3 L 95 03/01/19 01:45 91 H 5 L 95
[2019-03-01 19:44] LABS: Basophils # (auto) 0.02 K/uL (0-0.2); Basophils % (auto) 0.2 %; Eosinophils # (auto) 0.04 K/uL (0-0.5); Eosinophils % (auto) 0.4 %; Hematocrit (blood only) 23.5 % (37-47); Hemoglobin 8.3 g/dL (12.0-16.0); Immature Granulocytes # (auto) 0.04 K/uL (0.00-0.02); Immature Granulocytes % (auto) 0.4 %; Lymphocytes # (auto) 2.18 K/uL (1.2-3.4); Lymphocytes % (auto) 21.9 %; Mean Corpuscular Hgb Conc 35.3 g/dL (32-36); Mean Corpuscular Volume 87.7 fL (80-100); Monocytes # (auto) 0.71 K/uL (0.11-0.59); Monocytes % (auto) 7.1 %; Neutrophils # (auto) 6.98 K/uL (1.4-6.5); Platelet Count 141 K/uL (130-400); Red Blood Count 2.68 M/uL (4.2-5.4); White Blood Count 9.97 K/uL (4.8-10.8)
[2019-03-01] MEDS ORDERED: bisacodyL 5 MG TABEC PO SCH (20:00)
--- NOTE | 2019-03-02 06:53 | Obstetrical Progress Note ---
Date of Service March 02, 2019 Assessment & Plan (1) Encounter for care and examination after delivery: - PPD 2 with PPH s/p bakri balloon placement, transfusion of 5u pRBC, 2 u FFP, 1 unit Plt, 1 unit Cryo. - Able to ambulate to bathroom without issue. Wants to walk around - continue supportive care - awaiting Hg this morning; will consider discharge depending on stability of Hg Supervising Physician Co-Signing Physician Notes Resident Physician Supervision Note: I interviewed and examined the patient. Discussed with Dr. Sauer and agree with findings and plan as documented in the note. Any exceptions or clarifications are listed here: [None] Documented By: Kelly Everett MD, FACOG Subjective Feeling well this AM. Anxious to get home for children's [employer] if she can. Pain well controlled with tylenol and ibuprofen. Review of Systems Constitutional: + fatigue; no fever and no chills Respiratory: no cough and no dyspnea Cardiovascular: no chest pain, no syncope, no edema and no calf pain Gastrointestinal: no abdominal pain, no nausea, no vomiting, no cramping, no constipation and no diarrhea/loose stools Genitourinary: no dysuria and no difficulty urinating Neurologic: no headache(s) Physical Exam Constitutional: well developed and well nourished Respiratory: normal respiratory effort; no respiratory distress, no labored breathing and no cough Auscultation: no crackles, no rales, no rhonchi and no wheezes Cardiovascular: Rate/Rhythm: regular rate and regular rhythm Heart Sounds: no gallop, no murmur and no cardiac rub Extremities: no pedal edema Gastrointestinal (Abdomen): Inspection/Auscultation: + abdomen distended and normal bowel sounds Percussion/Palpation: abdomen soft; no guarding Musculoskeletal: no tenderness to palpation of calves bilaterally Genitourinary: Uterus small and firm, palpable in midline 2 fingers below lev el of umbilicus, no tenderness to palpation. Results & Data Vital Signs (Past 12 Hours) Vital Signs Temp Pulse Pulse Resp BP Pulse Ox 03/02/19 03:45 36.9 C 74 16 99/62 L 97 03/01/19 22:30 37.2 C 77 18 106/58 L 96 03/01/19 19:30 36.9 C 93 H 20 115/72 96 03/01/19 03/01/19 02/28/19 Range/Units 19:13 08:09 06:30 WBC 9.97 (4.8-10.8) K/uL RBC 2.68 L (4.2-5.4) M/uL Hgb 8.3 L 8.3 L (12.0-16.0) g/dL Hct 23.5 L 23.0 L (37-47) % MCV 87.7 (80-100) fL MCH 31.0 (25-34) pg MCHC 35.3 (32-36) g/dL Plt Count 141 (130-400) K/uL Immature Gran % (Auto) 0.4 % Neut % (Auto) 70.0 % Lymph % (Auto) 21.9 % [place] % (Auto) 7.1 % Eos % (Auto) 0.4 % Baso % (Auto) 0.2 % Immature Gran # (Auto) 0.04 H (0.00-0.02) K/uL Neut # (Auto) 6.98 H (1.4-6.5) K/uL Lymph # (Auto) 2.18 (1.2-3.4) K/uL [place] # (Auto) 0.71 H (0.11-0.59) K/uL Eos # (Auto) 0.04 (0-0.5) K/uL Baso # (Auto) 0.02 (0-0.2) K/uL Blood Type A Positive Antibody Screen NEGATIVE Crossmatch See Detail PG Care Time/CCT Total # of Minutes Spent Total Time Spent with Patient: Total time spent is greater than 50% in coordination of care (as documented) at patient's floor/unit and/or counseling patient: Resident Activity Tracking Resident Involvement: Resident Care Provided Care Provided: OB Delivery
[2019-03-02 07:09] LABS: Basophils # (auto) 0.02 K/uL (0-0.2); Basophils % (auto) 0.2 %; Eosinophils # (auto) 0.08 K/uL (0-0.5); Hematocrit (blood only) 23.7 % (37-47); Hemoglobin 8.3 g/dL (12.0-16.0); Immature Granulocytes # (auto) 0.02 K/uL (0.00-0.02); Immature Granulocytes % (auto) 0.2 %; Lymphocytes # (auto) 1.95 K/uL (1.2-3.4); Lymphocytes % (auto) 24.2 %; Mean Corpuscular Hemoglobin 31.4 pg (25-34); Mean Corpuscular Volume 89.8 fL (80-100); Mean Platelet Volume 8.7 fL (7.4-10.4); Monocytes # (auto) 0.53 K/uL (0.11-0.59); Monocytes % (auto) 6.6 %; Neutrophils # (auto) 5.47 K/uL (1.4-6.5); Neutrophils % (auto) 67.8 %; Platelet Count 129 K/uL (130-400); RDW Standard Deviation 49.1 fL (36.4-46.3); Red Blood Count 2.64 M/uL (4.2-5.4); White Blood Count 8.07 K/uL (4.8-10.8)
--- NOTE | 2019-03-02 07:34 | Discharge Summary ---
Date of Service March 02, 2019 Admission HPI Per Admitting Provider The patient is a 33-year-old 5, para 4 status post precipitous delivery at home who was brought by ambulance to labor and delivery for hemorrhage and retained placenta. The patient had a precipitous delivery at home. She was attended at some point by a linoleum layer who could not deliver the placenta and the patient started to hemorrhage. Ambulance was notified and the patient was brought to the hospital for evaluation. The patient's states that the patient had 2 previous bleeds with retained products of conception. With one of these, she was admitted to [facility] and had a Bakri balloon placed. The patient's states that she has no other significant past medical history. Admission Exam (Per Admitting) Constitutional GENERAL: Shows a pale Jewish woman, conversing, in no acute distress. ABDOMEN: Shows a fundus firm at umbilicus. PELVIC: Shows umbilical cord prolapsing through vagina. Attempted delivery of the placenta unsuccessful. Bimanual examination shows the placenta adhered to the uterine wall and will not release. EXTREMITIES: Shows bilateral varicosities with no deep calf tenderness. Discharge Data Consultations 02/28/19 06:20 Consult Anesthesiology Stat 02/28/19 08:57 Consult Bark Skinner Routine 02/28/19 09:02 Consult Bark Skinner Stat Procedures Performed Operation Date: 02/28/19 06:00 Actual Procedures p Dilatation and Curettage - Charles Boyle Jr, MD, [place] Hospital Course (1) hemorrhage: Verbal consent is obtained from the patient for Emergency manual extraction under general anesthesia. Anesthesia and the massive transfusion protocol have been activated. Discussing with anesthesia, it is not felt prudent to take the patient back to the operating room until blood products are available. Because of the estimated blood loss of at least 3000 mL at this point, O negative uncrossed matched blood will be transfused. Once the blood arrives, the patient will be taken to the operating room for removal of the placenta manually and further manipulation as needed. Verbal consent for this procedure was obtained from the patient. The patient was unable to sign because of the urgent status and multiple personnel attending to the patient. The patient was managed in the intensive care unit for the remainder of the day of admission. She remained clinically stable and did not show any signs of DIC. The patient received a total of 5 units of packed red blood cells, 2 units of fresh frozen plasma, 1 unit of platelets, and 1 unit of cryoprecipitate. On postoperative day 1. The [place] balloon was deflated over time and removed while the patient was still in the intensive care unit. The patient was clinically stable and transferred to the floor. On postoperative day 2 the patient's H&H came back at 8.3 and 24. The patient was ambulating without orthostatic signs or symptoms. The patient was discharged home on the 2nd postoperative day with routine discharge instructions. She has been prescribed iron sulfate 325 milligrams p.o. b.i.d.. A postoperative follow-up in the office in 6 weeks time was recommended to the patient. All questions answered.
[2019-03-02] MEDS: PRENATAL VITAMIN 1 TAB PO SCH (08:52)
[2019-03-02] MEDS: FOLIC ACID 1 MG TAB PO SCH (08:52)
[2019-03-02] MEDS: ASCORBIC ACID 500 MG TAB PO SCH (08:52)
[2019-03-02] MEDS: MULTIVITAMIN TAB PO SCH (08:52)
[2019-03-02] MEDS: DOCUSATE SODIUM 100 MG CAP PO SCH (08:52)
[2019-03-02] MEDS: FERROUS SULFATE 325 MG TAB PO SCH (08:52)
--- NOTE | 2019-03-13 08:23 | Coding Query ---
CODING QUERY To promote full compliance with coding requirements relating to patient care, provider participation is requested in all cases of jewel bearing polisher uncertainty. Please assist us with the question(s) below: Coding Question(s): Patient admitted after delivery at home, with retained placenta. Multiple units packed cells, cryoprecipitate, platelets were transfused. Please document the diagnosis that was treated pertaining to the hemorrhage requiring multiple transfusions. Over 5 Liters blood lost prior to patient admission. Thanks for your help! Charles Johnson [facility] Physician's Response(s): 1) post retained placenta 2) hemorrhage Principal Diagnosis: "that condition established after study, to be chiefly responsible for occasioning the admission of the patient to the hospital for care." Co-Existing Principal Diagnosis: "when two or more diagnoses equally meet the criteria for principal diagnosis as determined by the circumstances of admission, diagnostic work up, and/or therapy provided, and the Alphabetic Index, Tabular List, or another coding guideline does not provide sequencing direction, any one of the diagnoses may be sequenced first." "When the physician has documented what appears to be a current diagnosis in the body of the record, but has not included the diagnosis in the final diagnostic statement, the physician should be asked whether the diagnosis should be added." (Source Coding Clinic 2 QTR90. p3-4) CHEN
== END 2019-03-02 10:55 | disposition home or self-care (01) | DRG 769 ==
LOC: 4S1 06:08 → 1E 08:31 → 4S2 03-01 14:57